=== PATIENT | female | born 1955 ===

== ENCOUNTER 2016-08-11 08:23 | Observation (INO) | payer MEDICAID ==
[2016-08-07 10:15] VITALS: BMI 21.5
[2016-08-11 09:27] LABS: HEMATOCRIT 42.9 % (34.0-47.0); MEAN CELL VOLUME 89.8 fl (81.0-99.0); MEAN CORPUSCULAR HEMOGLOBIN 29.4 pg (27.0-31.0); MEAN CORPUSCULAR HGB CONC 32.7 g/dL (33.0-37.0); RED CELL DISTRIBUTION WIDTH 13.7 % (11.5-14.5); WHITE BLOOD COUNT 9.4 K/uL (4.8-10.8)
[2016-08-11 09:52] LABS: BLOOD UREA NITROGEN 13 mg/dl (7-17); CARBON DIOXIDE 28 mmol/L (22-30); CHLORIDE 106 mmol/L (98-107); GFR AFRICAN-AMERICAN > 60; GLUCOSE,RANDOM 83 mg/dL (65-105); SODIUM 143 mmol/l (132-148)
[2016-08-11] MEDS ORDERED: Propofol 10 mg/ml Inj (20 ML) ONE (11:11)
[2016-08-11] MEDS ORDERED: Midazolam 2 MG/2 ML VIAL ONE (11:11)
[2016-08-11] MEDS ORDERED: Rocuronium 10 mg/ml (5 ml) ONE (11:11)
[2016-08-11] MEDS ORDERED: ePHEDrine 50 mg/ml Inj ONE (11:11)
[2016-08-11] MEDS ORDERED: Succinylcholine 200 mg/10 ml Inj IV ONE (11:11)
[2016-08-11] MEDS ORDERED: Bupivacaine 0.25%-Epinephrine 1:200,000 (30 ml) Inj ONE (11:33)
[2016-08-11] MEDS ORDERED: Lactated Ringer's 1,000 ML IV ONE ×2 (12:00→13:00)
[2016-08-11] MEDS ORDERED: Dexamethasone 4 mg/1 ml ONE (12:17)
[2016-08-11] MEDS ORDERED: Bupivacaine 0.25%-Epinephrine 1:200,000 (30 ml) Inj IJ ONE ×2 (12:30)
[2016-08-11] MEDS ORDERED: HEMOSTATIC MATRIX 10 ML DIS.NEEDLE TOP ONE (13:20)
[2016-08-11] MEDS ORDERED: Neostigmine Methylsulfate 3mg/3ml Syringe IV ONE (13:45)
[2016-08-11] MEDS ORDERED: Neostigmine Methylsulfate 2 MG/2 ML ML IV ONE (13:45)
[2016-08-11] MEDS ORDERED: HYDROmorphone 0.5 mg/0.5 ml ISec IVP PRN (14:34)
--- NOTE | 2016-08-11 14:53 | PCM.SURG1 ---
<Natasha Suarez - Last Filed: 08/11/16 14:45> Surgeon's Initial Post Op Note - Surgeon's Notes Surgeon: Dr. Madi Vasquez [place] Roofer: Natasha Buenrostro PA-C Type of Anesthesia: General Endo Anesthesia Administered By: Dr. Macrina Barry Pre-Operative Diagnosis: Symptomatic Fibroid Uterus,Chronic Pelvic Pain,Pelvic Mass Operative Findings: see operative note Post-Operative Diagnosis: same Operation Performed: Robotic Total Hysterectomy,Bilateral Salpingectomy, Excision of Pelvic Mass,Extensive Lysis of Adhesions,Pelvic Exploration, Uterosacral Ligament Suspension,Cystoscopy Specimen/Specimens Removed: uterus,fallopian tubes,ovaries,pelvic mass Estimated Blood Loss: EBL {In ML}: 25 Drains Used: No Drains Post-Op Condition: Good Date of Surgery/Procedure: 08/11/16 Time of Surgery/Procedure: 11:30 <Madi Vasquez - Last Filed: 08/25/16 17:17> Surgeon's Initial Post Op Note - Surgeon's Notes Type of Anesthesia: General Endo, Local Blood Products Given: N/A Post-Op Condition: Good
--- NOTE | 2016-08-11 16:58 | CARD ---
APPROVED REPORT EKG Measurement Heart [id number] <Conclusion> Normal sinus rhythm Septal infarct, age undetermined Abnormal ECG
[2016-08-11] MEDS: Lactated Ringer's 1,000 ML IV SCH (18:35)
[2016-08-11] MEDS: Oxycodone/Acetaminophen 5/325 mg Tab PO PRN (23:51)
[2016-08-12] MEDS: Lactated Ringer's 1,000 ML IV SCH ×3 (03:01→17:30)
[2016-08-12] MEDS: Levothyroxine 75 MCG TAB PO SCH (06:11)
[2016-08-12 07:55] LABS: BASO # 0.1 K/uL (0.0-0.2); BASO % 0.2 % (0.0-2.0); EOS % 0.1 % (0.0-4.0); HEMATOCRIT 34.6 % (34.0-47.0); LYMPH # 1.6 K/uL (1.0-4.3); LYMPH % 7.6 % (20.0-40.0); MEAN CELL VOLUME 89.3 fl (81.0-99.0); MEAN CORPUSCULAR HGB CONC 33.6 g/dL (33.0-37.0); MONO # 2.2 K/uL (0.0-0.8); MONO % 10.4 % (0.0-10.0); NEUT # 17.4 K/uL (1.8-7.0); NEUT % 81.7 % (50.0-75.0); PLATELET COUNT 167 K/uL (130-400); RED CELL DISTRIBUTION WIDTH 13.8 % (11.5-14.5); WHITE BLOOD COUNT 21.2 K/uL (4.8-10.8)
[2016-08-12 08:25] LABS: BLOOD UREA NITROGEN 15 mg/dl (7-17); CALCIUM 8.3 mg/dL (8.4-10.2); CARBON DIOXIDE 25 mmol/L (22-30); CHLORIDE 105 mmol/L (98-107); GFR AFRICAN-AMERICAN > 60; GLUCOSE,RANDOM 102 mg/dL (65-105); POTASSIUM 3.8 MMOL/L (3.6-5.0); SODIUM 138 mmol/l (132-148)
[2016-08-12] MEDS: Oxycodone/Acetaminophen 5/325 mg Tab PO PRN (09:15)
[2016-08-12 11:32] LABS: NEUTROPHIL 84 % (42-75); REACTIVE LYMPHOCYTES 1 % (0-0); TOTAL CELLS COUNTED 100
[2016-08-12] MEDS ORDERED: Lactated Ringer's 1,000 ML IV SCH (15:45)
[2016-08-12] MEDS: ceFAZolin 1 GM in Sodium Chloride 0.9% 100 ML IVPB SCH (17:18)
[2016-08-12] MEDS ORDERED: ceFAZolin 1 GM in Sodium Chloride 0.9% 100 ML IVPB SCH (21:00)
[2016-08-13] MEDS: ceFAZolin 1 GM in Sodium Chloride 0.9% 100 ML IVPB SCH ×2 (00:14→08:56)
[2016-08-13] MEDS: Lactated Ringer's 1,000 ML IV SCH (06:20)
[2016-08-13] MEDS: Levothyroxine 75 MCG TAB PO SCH (06:58)
[2016-08-13 07:46] LABS: BASO # 0.1 K/uL (0.0-0.2); BASO % 0.4 % (0.0-2.0); EOS # 0.1 K/uL (0.0-0.7); EOS % 0.5 % (0.0-4.0); HEMATOCRIT 35.3 % (34.0-47.0); LYMPH # 1.8 K/uL (1.0-4.3); LYMPH % 11.2 % (20.0-40.0); MEAN CELL VOLUME 89.6 fl (81.0-99.0); MEAN CORPUSCULAR HEMOGLOBIN 30.1 pg (27.0-31.0); MEAN CORPUSCULAR HGB CONC 33.5 g/dL (33.0-37.0); MEAN PLATELET VOLUME 9.7 fl (7.2-11.7); MONO # 1.7 K/uL (0.0-0.8); MONO % 10.5 % (0.0-10.0); NEUT # 12.8 K/uL (1.8-7.0); NEUT % 77.4 % (50.0-75.0); RED CELL DISTRIBUTION WIDTH 14.1 % (11.5-14.5); WHITE BLOOD COUNT 16.5 K/uL (4.8-10.8)
[2016-08-13 09:19] VITALS: BP 124/79; RESP 18
--- NOTE | 2016-08-13 10:50 | CP.PCM.PN ---
Subjective - Date & Time of Evaluation Date of Evaluation: 08/13/16 Time of Evaluation: 08:00 - Subjective Subjective: pt without c/o,everett PO,voiding,+ flatus, incisional pain alleviated with change to tramadol from percocet,emesis resolved,amb without asst Objective - Vital Signs/Intake and Output Vital Signs (last 24 hours): Temp Pulse Resp BP Pulse Ox 98.5 F 88 18 124/79 98 08/13/16 09:00 08/13/16 09:00 08/13/16 09:00 08/13/16 09:00 08/13/16 09:00 - Medications Medications: Current Medications Docusate Sodium (Colace) 100 mg PO BID [facility] Last Admin: 08/13/16 08:55 Dose: 100 mg Famotidine (Pepcid) 20 mg PO BID [facility] Last Admin: 08/13/16 08:55 Dose: 20 mg Hydromorphone HCl (Dilaudid) 0.5 mg IVP Q10M PRN PRN Reason: Pain, moderate (4-7) Last Admin: 08/11/16 15:15 Dose: 0.5 mg Lactated Ringer's (Lactated Ringer's) 1,000 mls @ 125 mls/hr IV .Q8H [facility] Last Admin: 08/13/16 06:20 Dose: 125 mls/hr Cefazolin Sodium 1 gm/ Sodium (Chloride) 100 mls @ 100 mls/hr IVPB Q8 [facility] Last Admin: 08/13/16 08:56 Dose: 100 mls/hr Ketorolac Tromethamine (Toradol) 15 mg IVP Q6 PRN PRN Reason: Muscle spasm Stop: 08/13/16 16:00 Levothyroxine Sodium (Synthroid) 75 mcg PO DAILY@0630 [facility] Last Admin: 08/13/16 06:58 Dose: 75 mcg Morphine Sulfate (Morphine) 4 mg IVP Q4 PRN PRN Reason: Pain, severe (8-10) Last Admin: 08/11/16 17:10 Dose: 4 mg Ondansetron HCl (Zofran Inj) 4 mg IVP Q6 PRN PRN Reason: Nausea/Vomiting Last Admin: 08/12/16 14:56 Dose: 4 mg Tramadol HCl (Ultram) 50 mg PO Q6 PRN PRN Reason: Pain, moderate (4-7) Last Admin: 08/13/16 00:11 Dose: 50 mg - Labs Labs: 08/13/16 07:26 08/12/16 07:48 - Constitutional Appears: Well, Non-toxic, No Acute Distress - Head Exam Head Exam: ATRAUMATIC, NORMAL INSPECTION, NORMOCEPHALIC - Eye Exam Eye Exam: EOMI, Normal appearance, PERRL - ENT Exam ENT Exam: Mucous Membranes Moist - Neck Exam Neck Exam: Normal Inspection - Respiratory Exam Respiratory Exam: Clear to Ausculation Bilateral - Cardiovascular Exam Cardiovascular Exam: REGULAR RHYTHM, +S1, +S2 - GI/Abdominal Exam GI & Abdominal Exam: Soft Additional comments: incisions C/D/I,minimally tender,no rebound - Extremities Exam Extremities Exam: Normal Inspection - Neurological Exam Neurological Exam: Alert, Oriented x3 - Psychiatric Exam Psychiatric exam: Normal Affect, Normal Mood - Skin Skin Exam: Dry, Intact Assessment and Plan - Assessment and Plan (Free Text) Assessment: 60 yo female POD#2 Robotic Total Hysterectomy/Excision of Pelvic Mass/MIGUEL ÁNGEL/ Uterosacral Ligament Suspension/Cystoscopy,hemodynamically stable,improved leukocytosis/Hx Hypothyroidism Plan: d/c home today with family,f/u in [address] Vasquez,all d/w Dr. Vasquez
--- NOTE | 2016-08-13 11:11 | CP.PCM.DIS ---
Provider - Provider Date of Admission: 08/11/16 15:12 Attending physician: Madi Vasquez MD Primary care physician: Madi Vasquez MD Time Spent in preparation of Discharge (in minutes): 25 Diagnosis - Discharge Diagnosis (1) Fibroid uterus Status: Chronic (2) Adnexal mass Status: Chronic Hospital Course - Lab Results Lab Results: Most Recent Lab Values WBC 16.5 K/uL (4.8-10.8) H 08/13/16 07:26 RBC 3.94 Mil/uL (3.80-5.20) 08/13/16 07:26 Hgb 11.8 g/dL (12.0-16.0) L 08/13/16 07:26 Hct 35.3 % (34.0-47.0) 08/13/16 07:26 MCV 89.6 fl (81.0-99.0) 08/13/16 07:26 MCH 30.1 pg (27.0-31.0) 08/13/16 07:26 MCHC 33.5 g/dL (33.0-37.0) 08/13/16 07:26 RDW 14.1 % (11.5-14.5) 08/13/16 07:26 Plt Count 149 K/uL (130-400) 08/13/16 07:26 MPV 9.7 fl (7.2-11.7) 08/13/16 07:26 Neut % (Auto) 77.4 % (50.0-75.0) H 08/13/16 07:26 Lymph % (Auto) 11.2 % (20.0-40.0) L 08/13/16 07:26 [place] % (Auto) 10.5 % (0.0-10.0) H 08/13/16 07:26 Eos % (Auto) 0.5 % (0.0-4.0) 08/13/16 07:26 Baso % (Auto) 0.4 % (0.0-2.0) 08/13/16 07:26 Neut # 12.8 K/uL (1.8-7.0) H 08/13/16 07:26 Lymph # 1.8 K/uL (1.0-4.3) 08/13/16 07:26 [place] # 1.7 K/uL (0.0-0.8) H 08/13/16 07:26 Eos # 0.1 K/uL (0.0-0.7) 08/13/16 07:26 Baso # 0.1 K/uL (0.0-0.2) 08/13/16 07:26 Neutrophils % (Manual) 84 % (42-75) H 08/12/16 07:48 Band Neutrophils % 1 % (0-2) 08/12/16 07:48 Lymphocytes % (Manual) 8 % (20-50) L 08/12/16 07:48 Reactive Lymphs % 1 % (0-0) H 08/12/16 07:48 Monocytes % (Manual) 6 % (0-10) 08/12/16 07:48 Platelet Estimate Normal (NORMAL) 08/12/16 07:48 Hypochromasia (manual) Slight 08/12/16 07:48 Sodium 138 mmol/l (132-148) 08/12/16 07:48 Potassium 3.8 MMOL/L (3.6-5.0) 08/12/16 07:48 Chloride 105 mmol/L (98-107) 08/12/16 07:48 Carbon Dioxide 25 mmol/L (22-30) 08/12/16 07:48 Anion Gap 12 (10-20) 08/12/16 07:48 BUN 15 mg/dl (7-17) 08/12/16 07:48 Creatinine 0.6 mg/dL (0.7-1.2) L 08/12/16 07:48 Est GFR ( Amer) > 60 08/12/16 07:48 Est GFR (Non-Af Amer) > 60 08/12/16 07:48 Random Glucose 102 mg/dL (65-105) 08/12/16 07:48 Calcium 8.3 mg/dL (8.4-10.2) L 08/12/16 07:48 Blood Type O POSITIVE 08/11/16 09:23 Blood Type Confirm O POSITIVE 08/11/16 10:41 Antibody Screen Negative 08/11/16 09:23 BBK History Checked No verified bt 08/11/16 09:23 Discharge Exam - Head Exam Head Exam: ATRAUMATIC, NORMAL INSPECTION, NORMOCEPHALIC - Eye Exam Eye Exam: EOMI, Normal appearance, PERRL Pupil Exam: NORMAL ACCOMODATION - ENT Exam ENT Exam: Mucous Membranes Moist - Neck Exam Neck exam: Normal Inspection - Respiratory Exam Respiratory Exam: Clear to PA & Lateral - Cardiovascular Exam Cardiovascular Exam: REGULAR RHYTHM - GI/Abdominal Exam GI & Abdominal Exam: Normal Bowel Sounds Additional comments: incisions C/D/I - Psychiatric Exam Psychiatric exam: Normal Affect, Normal Mood - Skin Skin Exam: Dry, Intact Discharge Plan - Follow Up Plan Condition: GOOD Disposition: HOME/ ROUTINE Patient education suggested?: Yes Additional Instructions: Pt s/p Robotic Total Hysterectomy/Excision of Pelvic Mass/MIGUEL ÁNGEL/Uterosacral ligament suspension doing well,post op leukocytosis secondary to intraop stress improved with abx,will not go home with abx per attd,hemodynamically stable, ambulatory without asst,voiding,+ flatus,pain controlled with tramadol,voiding without c/o,pt given pain med scripts,told to f/u with in 1 week, hospital course otherwise uncomplicated,pt stable for d/c home with family. Referrals: Madi Vasquez MD [Primary Care Provider] -
--- NOTE | 2016-08-13 11:17 | CP.PCM.PN ---
Subjective - Date & Time of Evaluation Date of Evaluation: 08/12/16 Time of Evaluation: 13:30 - Subjective Subjective: pt c/o incisional pain,decreased PO 2ndary to n/v from percocet,ambulatory without asst,voiding,+flatus,using incentive spirometry,denies fever,chill's,[place] or SOB Objective - Vital Signs/Intake and Output Vital Signs (last 24 hours): Temp Pulse Resp BP Pulse Ox 98.5 F 88 18 124/79 98 08/13/16 09:00 08/13/16 09:00 08/13/16 09:00 08/13/16 09:00 08/13/16 09:00 - Medications Medications: Current Medications Docusate Sodium (Colace) 100 mg PO BID [facility] Last Admin: 08/13/16 08:55 Dose: 100 mg Famotidine (Pepcid) 20 mg PO BID [facility] Last Admin: 08/13/16 08:55 Dose: 20 mg Hydromorphone HCl (Dilaudid) 0.5 mg IVP Q10M PRN PRN Reason: Pain, moderate (4-7) Last Admin: 08/11/16 15:15 Dose: 0.5 mg Lactated Ringer's (Lactated Ringer's) 1,000 mls @ 125 mls/hr IV .Q8H [facility] Last Admin: 08/13/16 06:20 Dose: 125 mls/hr Cefazolin Sodium 1 gm/ Sodium (Chloride) 100 mls @ 100 mls/hr IVPB Q8 [facility] Last Admin: 08/13/16 08:56 Dose: 100 mls/hr Ketorolac Tromethamine (Toradol) 15 mg IVP Q6 PRN PRN Reason: Muscle spasm Stop: 08/13/16 16:00 Levothyroxine Sodium (Synthroid) 75 mcg PO DAILY@0630 [facility] Last Admin: 08/13/16 06:58 Dose: 75 mcg Morphine Sulfate (Morphine) 4 mg IVP Q4 PRN PRN Reason: Pain, severe (8-10) Last Admin: 08/11/16 17:10 Dose: 4 mg Ondansetron HCl (Zofran Inj) 4 mg IVP Q6 PRN PRN Reason: Nausea/Vomiting Last Admin: 08/12/16 14:56 Dose: 4 mg Tramadol HCl (Ultram) 50 mg PO Q6 PRN PRN Reason: Pain, moderate (4-7) Last Admin: 08/13/16 00:11 Dose: 50 mg - Labs Labs: 08/13/16 07:26 08/12/16 07:48 - Constitutional Appears: Well, Non-toxic, No Acute Distress - Head Exam Head Exam: ATRAUMATIC, NORMAL INSPECTION, NORMOCEPHALIC - Eye Exam Eye Exam: EOMI, Normal appearance, PERRL - ENT Exam ENT Exam: Mucous Membranes Moist - Respiratory Exam Respiratory Exam: Clear to Ausculation Bilateral - Cardiovascular Exam Cardiovascular Exam: REGULAR RHYTHM, +S1, +S2 - GI/Abdominal Exam GI & Abdominal Exam: Soft, Normal Bowel Sounds Additional comments: incisions C/D/I,+ incisional tenderness - Extremities Exam Extremities Exam: Normal Inspection - Neurological Exam Neurological Exam: Alert, Oriented x3 - Psychiatric Exam Psychiatric exam: Normal Affect, Normal Mood - Skin Skin Exam: Dry, Intact Assessment and Plan (1) Fibroid uterus Status: Chronic (2) Adnexal mass Status: Chronic - Assessment and Plan (Free Text) Assessment: 60 yo female POD#1 Robotic Total Hysterectomy/Excision of Pelvic Mass/MIGUEL ÁNGEL/ Uterosacral Ligament Suspension/Cystoscopy/Leukocytosis/Emesis 2ndary to narcotics/Hemodynamically stable/Hx Hypothyroidism Plan: Ancef started q8h,change percocet to tramodol,cont to monitor,cont OOB,am cbc, all d/w Dr. Vasquez
[2016-08-13 16:28] VITALS: PULSE 79; TEMP 98.2; O2SAT 99
--- NOTE | 2016-08-25 17:21 | PCM.SURG1 ---
Surgeon's Initial Post Op Note - Surgeon's Notes Surgeon: Madi Villareal Md Centrifugal Station Operator: Natasha BONE Type of Anesthesia: General Endo, Local Anesthesia Administered By: Gen. anesthesia Dr. Sarah Pre-Operative Diagnosis: Fibroid uterus. Uterine prolapse. Chronic pelvic pain. Adnexal mass. Urinary incontinence Operative Findings: Detailed Operative Report. This is a 61 years old female with long-standing history of uterine prolapse, urinary incontinence, chronic pelvic pain, associated fibroid uterus and a large complex adnexal mass. The patient completed an extensive preoperative workup, which included an ultrasound, as well as a pap smear and an endometrial biopsy, chemistry and hematology studies. The patient reported these symptoms and problems as debilitating, and adversely affecting her quality of life. Following a period of failed conservative management, and patient decision was made to proceed with a more invasive approach to address the above noted problems. A decision was finally made to proceed with a total robotic assisted hysterectomy, bilateral salpingoophorectomy, excision of adnexal mass as well as vaginal vault suspension. A detailed description of this robotic procedure was given to the patient, all risks and benefits of the surgical modality was reviewed, printed material was also given to the patient regarding robotic surgery. The patient fully understood all the risks and benefits and elected to proceed with this proposed procedure. After proper consent was obtained from the patient was taken to the operating room, proper patient identification was completed. She was placed in dorsal lithotomy position; general anesthesia was induced without difficulty. Her legs were placed in adjustable Dru stirrups. Careful attention was placed not to over-flex or over-rotate the lower extremities at the hip or the knee joints. She was prepped and draped appropriately for robotic assisted hysterectomy, colpopexy and rectopexy. Whittaker catheter was inserted under sterile conditions. A weighted speculum was placed in the vagina, anterior lip of cervix was grasped with a tenaculum, and a V-care uterine manipulator was inserted through the cervix and secured. The weighted speculum and tenaculum were removed from the patient's vagina and attention was turned to the patient's abdomen. Local anesthetic solutions of 0.25% Marcaine with epinephrine were utilized to infiltrate the skin prior to all abdominal skin incisions. A total of 15 mL of 0.25% Marcaine was utilized throughout the procedure. While tenting the abdominal wall, a Veres needle was inserted through the umbilicus and a pneumoperitoneum was obtained. Approximately 3 cm above the umbilicus in the midline, a .08 cm incision was made with a scalpel and a trocar and sleeve were introduced. A robotic camera was inserted and an initial survey of the patient's abdomen revealed a large complex cystic mass expanding across the pelvic cavity covering the uterus as well as the ovaries and fallopian tubes. An enlarged bulky uterus, boggy in appearance. Both ovaries appeared severely adherent to the pelvic sidewalls with distorted and adhering fallopian tubes. Extensive peritoneal and bowel adhesions was noted, likely from prior surgeries or previous intra-abdominal infections. The patient was placed in Trendelenburg position ready for a da Rojelio robotic system to be docked. 3 robotic ports were utilized for this procedure. The first robotic port was placed on the patient's right side approximately 8 cm left lateral to the camera port, the second robotic port was placed 8 cm right lateral to the camera port and the third robotic port was placed approx. 8 cm lateral the second port and approximately 3 cm cephalic to the left superior iliac crest. All incisions were approximately 8 mm in length. An wardrobe assistant port was placed 8 cm left lateral to the first robotic port. For the wardrobe assistant and camera ports we utilized the Versa step trocar system. All trocars were inserted under direct visualization. The placement of the trocars was all accomplished under careful and meticulous placement under direct visualization. Following the placement of all trocars, the da Rojelio robotic system was docked in a parallel fashion without difficulty. The following instruments were utilized for this procedure: the PK sealing and cautery device, a monopolar marcial and finally a ProGrasp. Meticulous and careful lysis of adhesions as well as enterolysis was accomplished utilizing the monopolar marcial and bipolar device. Prior to the start of the hysterectomy , tight adhesions involving the pelvic sidewalls in close proximity to both ureters were lysed, exploration of the ureters and their courses was necessary. Following meticulous and careful dissection into the pelvic sidewall, both ureters were explored and visualized, peristalsis bilaterally. Prior to the hysterectomy it was necessary to address the adnexal mass. Pelvic washing was completed and sent to pathology. Meticulous sharp and blunt dissection isolated the pelvic mass intact and it was a nucleated without puncturing it without draining it into the pelvic cavity. The mass was placed in the abdominal cavity to be extracted following the hysterectomy. On the patient's right side, the IP and the round ligaments were identified cauterized and transected, the broad ligament was divided all the way down to the utero cervical junction bladder flap was then created by transecting the visceroperitoneum over the bladder reflection. In a similar fashion, the left round ligament, IP ligament and broad ligament were cauterized sealed and transected, taken down to the level of the cervical uterine junction. Uterine vessels on both sides were sealed and transected. The Uterosacral ligaments were sealed and transected. The monopolar marcial and PK were utilized to complete the colpotomy incision around the care vaginal ring. Excellent hemostasis was noted. The uterus, cervix, ovaries and fallopian tubes were delivered transvaginal through the colpotomy incision and sent to pathology for permanent analysis. Lastly, the pelvic mass was placed in an Endo Catch and removed via the vaginal colpotomy incision intact and sent to pathology. The colpotomy incision was closed with 2-0 v LOC in a continuous fashion with excellent hemostasis. The vaginal vault suspension was achieved by suspending the vaginal cuff to the base of the uterosacral ligaments bilaterally. For uterosacral ligament suspension portion of the procedure, the ureters were once again identified to avoid possible compromise or kinking while suspending the vaginal vault. A 2-0 permanent suture material ([place]) was utilized to suspend the uterosacral ligaments from the base to the vaginal vault cuff incision including both anterior and posterior aspect of the colpotomy incision. The abdomen was throughout irrigated and cleared of all clots and debris. FloSeal as well as Interceed was applied to the incision sites. Excellent hemostasis was again noted. All robotic and laparoscopic instruments removed under direct visualization. The robotic arms were undocked , and a da Rojelio robotic system was wheeled away from the patient's bedside. Both wardrobe assistant and camera ports were closed at the fascial layer utilizing a 2- 0 Vicryl suture material in interrupted fashion. Pneumoperitoneum was reduced and all skin incisions were closed utilizing 4-0 Monocryl in a subcutaneous fashion. Dermabond was applied to all incisions. Due to the complexity of this hysterectomy and colpopexy, a diagnostic cystoscopy was completed. The Whittaker catheter was removed; the bladder was distended with approximately 350 cc of normal saline. A 30 cystoscope was introduced and a survey of the bladder anatomy was completed. The base, and the dome of the bladder appeared normal, both ureteral orifices appeared normal and were efluxing urine freely. The urethra appeared normal. A Hwittaker catheter was reinserted. Vaginal packing was inserted to be removed the next morning. Patient emerged from general anesthesia without difficulty, and was taken to recovery room in stable condition. Prior to incision the patient received antibiotics, prior to closure sponge lap and needle counts were correct x2. Post-Operative Diagnosis: Fibroid uterus. Uterine prolapse. Chronic pelvic pain. Adnexal mass. Urinary incontinence Operation Performed: Total robotic hysterectomy bilateral salpingo-oophorectomy >250g. Excision of adnexal mass. Uterosacral ligament suspension. Anterolysis / exploration of ureters. Cystoscopy Specimen/Specimens Removed: Uterus cervix fallopian tubes and ovaries. Adnexal cystic mass. Pelvic washing Estimated Blood Loss: EBL {In ML}: 20 Blood Products Given: N/A Drains Used: No Drains Post-Op Condition: Good Date of Surgery/Procedure: 08/11/16 Time of Surgery/Procedure: 11:30
== END 2016-08-13 17:00 | disposition home or self-care (01) ==
LOC: H.OPSURG 08:23 → H.ERHOLD 15:12 → H.PEDS 16:58
PROVIDERS: ADMIT Obstetrics & Gynecology; ATTEND Obstetrics & Gynecology
DX: D25.9 Leiomyoma of uterus, unspecified (principal); E03.9 Hypothyroidism, unspecified; N81.4 Uterovaginal prolapse, unspecified; R32 Unspecified urinary incontinence; N85.8 Other specified noninflammatory disorders of uterus; N85.2 Hypertrophy of uterus; N73.6 Female pelvic peritoneal adhesions (postinfective)